=== PATIENT | female | born 1970 | race American Indian/Alaskan Native ===

== ENCOUNTER 2016-07-20 10:02 | Outpatient (CLI) | payer MEDICAID ==
--- NOTE | 2016-07-20 11:36 | Mammography Report ---
LEFT DIGITAL DIAGNOSTIC MAMMOGRAM and LEFT BREAST ULTRASOUND: 07/20/16 10:02:00 CLINICAL: Recalled for asymmetry. COMPARISON:06/22/16 screening FINDINGS: Lateralmedial and spot compression MLO and CC views were performed. Irregular circumscribed oval asymmetry persist with spot compression on the CC view. It appears to partially efface with spot compression on MLO view. Additional circumscribed nodules in the left breast are stable. Ultrasound of the inner left breast was performed and demonstrated a solid hypoechoic mass at 11 o'clock 13 cm from the nipple. It measures 8 x 5 x 9 mm and correlates with the mammographic density. IMPRESSION: A 9 mm suspicious mass 11 o'clock 13 cm from the nipple. BI-RADS CATEGORY: 4--Suspicious RECOMMENDATION: Ultrasound guided needle core biopsy of the left breast. I discussed the findings and the recommendation for needle core biopsy of the left breast with the patient at the time of the examination. ACR BI-RADS MAMMOGRAPHIC CODES: 0 = Needs additional imaging evaluation; 1 = Negative; 2 = Benign; 3 = Probably benign; 4 = Suspicious; 5 = Malignant; 6 = Known biopsy-proven malignancy COMMENT: 1. Dense breast tissue, i.e., adenosis, fibrocystic changes, etc., may obscure an underlying neoplasm. 2. Approximately 10% of cancers are not detected with mammography. 3. A negative mammography report should not delay biopsy if a clinically suspicious mass is present. COMMENT: Patient follow-up letters are generated via our [employer] application.
[2016-07-21] MEDS ORDERED: NACL ONE (13:55)
== END 2016-07-20 10:03 | disposition home or self-care (01) ==
LOC: MAMMO 10:02
PROVIDERS: ATTEND Advanced Practice Midwife
DX: N63 Unspecified lump in breast (principal)
CPT/HCPCS: 76642; G0206

== ENCOUNTER 2016-08-10 09:03 | Outpatient (CLI) | payer MEDICAID ==
--- NOTE | 2016-08-10 11:13 | Mammography Report ---
LEFT DIGITAL DIAGNOSTIC MAMMOGRAM: 08/10/16 09:03:00 CLINICAL: For clip placement immediately status post ultrasound biopsy. COMPARISON:07/20/16 FINDINGS: A biopsy clip is now identified in the upper inner quadrant and the previously described mass is no longer identified. IMPRESSION: Concordant clip placement status post ultrasound biopsy. BI-RADS CATEGORY: 4--Suspicious Pathology pending.
--- NOTE | 2016-08-10 11:34 | Ultrasound Report ---
VACUUM ASSISTED ULTRASOUND GUIDED NEEDLE CORE BIOPSY WITH CLIP PLACEMENT LEFT BREAST: 08/10/16 09:03:00 CLINICAL: A 9 mm suspicious mass at 11 o'clock. COMPARISON :07/20/16 FINDINGS: The procedure was explained to the patient and informed consent was obtained. Ultrasound demonstrated the previously described 9 mm mass at 11 o'clock. The skin was prepped with Betadine and anesthetized with 1% lidocaine. Vacuum-assisted needle core biopsy was performed through a small dermatotomy using ultrasound guidance, 2% lidocaine with epinephrine for deep anesthesia and a 13-gauge Elite biopsy probe. Imaging demonstrated satisfactory sampling. Multiple cores were obtained and placed in formalin. An 11-gauge Mammostar barbell shape clip was then placed within the lesion. Hemostasis was achieved with mild pressure and a sterile dressing was applied. The patient tolerated the procedure well and there were no apparent complications. A two view mammogram demonstrated concordant clip placement and no residual mammographic mass. The patient left the department in good condition with instructions for wound care and follow up. IMPRESSION: Uncomplicated vacuum-assisted ultrasound core biopsy and clip placement left breast.
== END 2016-08-10 09:04 | disposition home or self-care (01) ==
LOC: SPVWC 09:03
PROVIDERS: ATTEND Advanced Practice Midwife
DX: N63 Unspecified lump in breast (principal)
CPT/HCPCS: 19083; 88305; A4648; G0206; 88361; 88368

== ENCOUNTER 2016-08-26 15:30 | Outpatient (CLI) | payer MEDICAID ==
--- NOTE | 2016-08-27 09:25 | Magnetic Resonance Report ---
BILATERAL BREAST MRI WITHOUT AND WITH CONTRAST: 08/26/16 14:00:00 CLINICAL: Newly diagnosed left breast cancer. Status post also guided vacuum assisted needle core breast biopsy on 08/10/16. COMPARISON:06/22/16 screening mammogram, 07/20/16 left mammogram and left breast ultrasound and images at left ultrasound breast biopsy 08/10/16 with pathologic diagnosis of invasive ductal carcinoma, ER positive, OR positive, and HER-2 negative. TECHNIQUE: Axial 1.0-mm T1 without, axial high resolution 2.0-mm T2 and axial 1.0-mm dynamic Vibrant high-resolution postcontrast T1 saturation sequences on a 1.5 Deandra magnet. The examination was performed with an 8 channel dedicated Sentinelle breast coil. Post processing with CAD and subtraction was performed on an [employer] workstation. 30.0 cc of Multihance was injected without incident in a right antecubital vein 22-gauge INT for the contrast portion of the exam. Consent was obtained prior to the administration of the contrast. FINDINGS: Right: Minimal background parenchymal enhancement. No suspicious mass or suspicious enhancement. A 1.9 cm nonenhancing smooth oval mass at 6 o'clock in the center of the breast corresponds to a heavily calcified fibroadenoma that is more lateral on the recent screening mammogram. A 1.7 cm smooth oval mass with a benign enhancement pattern at 12 o'clock correlates with a benign mammographic mass. No suspicious right axillary or right internal mammary lymph nodes. Left: Mild background parenchymal enhancement. The known cancer is irregular enhancing mass in the upper inner quadrant 12 cm from the nipple measuring 10.0 x 5.0 x 5.0 mm. A hydro-kiya clip is located 1 cm lateral to the mass. The mass demonstrates heterogeneous enhancement with mixed kinetics, 66% type I persistent, 33% type II plateau and 1% type III washout waveforms. Segmental non-Mass enhancement in the area of the mass is most likely benign enhancement related to the recent biopsy and it measures 7.5 x 4.5 x 5.3 cm. Three nonenhancing masses of the left breast correlate with benign fibroadenomas on the mammogram. The largest is periareolar and measures 2.6 cm. No other mass or suspicious enhancement of the left breast. One suspicious level I left axillary lymph node measures 2.3 cm with 7 mm focal cortical thickening. A second left axillary lymph node measures 1.4 cm and has benign morphology with no cortical thickening. IMPRESSION: Known 1 cm left breast cancer and no additional suspicious lesion of either breast. Multiple bilateral benign fibroadenomas which have been mammographically stable over time. One suspicious left axillary lymph node. RIGHT BI-RADS 2 -- Benign LEFT BI-RADS 6 -- Known Cancer
== END 2016-08-26 15:31 | disposition home or self-care (01) ==
LOC: SPVIMAG 15:30
PROVIDERS: ATTEND Surgery
DX: C50.212 Malignant neoplasm of upper-inner quadrant of left female breast (principal)
CPT/HCPCS: 0159T; A9577; C8908; 77059

== ENCOUNTER 2016-09-14 10:15 | Outpatient (CLI) | payer MEDICAID ==
--- NOTE | 2016-09-15 08:02 | Vascular Lab Report ---
LOWER EXTREMITY VENOUS DUPLEX: REASON FOR EXAM: History of hypercoagulable state with breast cancer. COMMENTS ON THE RIGHT: All veins visualized are freely compressible without evidence of internal echogenicity. Flow is spontaneous and phasic throughout. COMMENTS ON THE LEFT: All veins visualized are freely compressible without evidence of internal echogenicity. Flow is spontaneous and phasic throughout. IMPRESSION: No evidence of acute or chronic deep venous thrombosis in either lower extremity.
== END 2016-09-14 10:16 | disposition home or self-care (01) ==
LOC: VAS 10:15
PROVIDERS: ATTEND Surgery
DX: C50.912 Malignant neoplasm of unspecified site of left female breast (principal); I82.403 Acute embolism and thrombosis of unspecified deep veins of lower extremity, bilateral
CPT/HCPCS: 93970

== ENCOUNTER 2016-09-16 08:15 | Day surgery (SDC) | payer MEDICAID ==
[2016-09-14 12:46] LABS: Basophils % (Auto) 0.5 % (0.0-1.8); Eosinophils % (Auto) 1.9 % (0.0-4.3); Hematocrit 38.4 % (30.3-42.9); Hemoglobin 12.3 gm/dl (10.1-14.3); Mean Corpuscular HGB Conc 32 % (30-34); Mean Corpuscular Hemoglobin 27 pg (28-32); Mean Corpuscular Volume 85 fl (79-97); Platelet Count 272 K/mm3 (140-440); Red Blood Count 4.54 M/mm3 (3.65-5.03); Red Cell Distribution Width 16.7 % (13.2-15.2); White Blood Count 7.5 K/mm3 (4.5-11.0)
[2016-09-14 13:01] LABS: BUN/Creatinine Ratio 21.66; Blood Urea Nitrogen 13 mg/dL (7-17); Calcium 9.1 mg/dL (8.4-10.2); Carbon Dioxide 29 mmol/L (22-30); Glucose 112 mg/dL (65-100)
[2016-09-14 13:02] LABS: Anion Gap 14 mmol/L; Chloride 100.1 mmol/L (98-107); Potassium 3.5 mmol/L (3.6-5.0); Sodium 140 mmol/L (137-145)
--- NOTE | 2016-09-14 13:02 | Anesthesia Consultation ---
Anesthesia Consult and Med Hx Date of service: 09/14/16 - Airway Anesthetic Teeth Evaluation: Good (MISSING BOTTOM LEFT, CROWN CAME OFF) ROM Head & Neck: Adequate Mental/Hyoid Distance: Adequate Mallampati Class: Class II Intubation Access Assessment: Probably Good - Pulmonary Exam CTA: Yes - Cardiac Exam Cardiac Exam: RRR - Pre-Operative Health Status ASA Pre-Surgery Classification: ASA3 Proposed Anesthetic Plan: General Nerve Block: PECS - Pulmonary Hx Smoking: No Hx Sleep Apnea: No - Cardiovascular System Hx Hypertension: Yes (FOR 5 YRS, DR. NADEEM ROMO - PCP) Hx Heart Murmur: Yes - Central Nervous System Hx Seizures: No CVA: No Hx Psychiatric Problems: No - Endocrine Hx Renal Disease: No Hx Non-Insulin Dependent Diabetes: Yes Hx Thyroid Disease: No Hx Hypothyroidism: No - Hematic Hx Anemia: Yes (IN 2015 BEFORE ANAMARIA) - Other Systems Hx Cancer: Yes (LEFT BREAST, DX: 07/2016) Hx Obesity: Yes (MORBID, BMI 52) - Additional Comments Anesthesia Medical History Comments: PONV
[~2016-09-16 08:15] MED LIST: NACL 0.9% 1000 ML 1,000 ML IV SCH; NEURONTIN PO NR; PEPCID PO NR; SUBLIMAZE IV NR; TRANSDERM-SCOP TD NR; VANCOMYCIN/NS 1 GM/250 ML 1 GM/250 ML BAG IV NR; VERSED IV NR
[2016-09-16] MEDS ORDERED: XYLOCAINE 1% 20 mL ONE (09:42)
--- NOTE | 2016-09-16 10:59 | Procedure Note ---
Date of procedure: 09/16/16 Pre-op diagnosis: lt breast lesion Post-op diagnosis: same Procedure: needle loc Findings: n/a Anesthesia: local Surgeon: NICK SOLANO Estimated blood loss: none Pathology: none Condition: stable (surgery)
[2016-09-16] MEDS ORDERED: SUBLIMAZE ONE (11:33)
[2016-09-16] MEDS ORDERED: DIPRIVAN 10 MG/ML IV ONE ×2 (11:33→12:58)
[2016-09-16] MEDS ORDERED: MARCAINE-EPI 0.5%-1:200,000 INFILTRATI ONE (11:45)
[2016-09-16] MEDS ORDERED: NEO SYNEPHRINE/NS Syringe(OR USE) IV ONE (12:43)
[2016-09-16] MEDS ORDERED: ZOFRAN ONE (13:41)
--- NOTE | 2016-09-16 13:43 | Mammography Report ---
Left breast localization: Mammographic grid technique is utilized. A superior approach was chosen for a marker placed in the central superior breast. The skin was cleansed and 1% lidocaine used for local anesthesia. A 7.5 cm Mraquez needle was successfully placed adjacent to the marker. A wire was then introduced followed by removal of the needle and reconfirmation of its position with mammography. There are no patient complications encountered.
[2016-09-16] MEDS ORDERED: WATER FOR IRRIG STERILE IR ONE (13:56)
[2016-09-16] MEDS ORDERED: NACL 0.9% IR ONE (13:56)
--- NOTE | 2016-09-16 15:34 | Mammography Report ---
Operative specimen mammogram: A single tissue specimen is submitted it includes the localizing wire and the targeted marker.
--- NOTE | 2016-09-16 15:56 | Short Stay Summary ---
Short Stay Documentation Date of service: 09/16/16 - History H&P: obtained from office - Allergies and Medications Current Medications: Allergies Penicillins Adverse Reaction (Unverified 07/20/16 10:03) UPSET STOMACH Home Medications Medication Instructions Recorded Confirmed Last Taken Type HYDROcodone/APAP 5-325 [[place] 1 each PO Q4H PRN #30 tablet 05/29/15 09/10/16 Rx 5-325 mg TAB] Acetaminophen/Codeine [Tylenol #3] 1 tab PO Q8H PRN 09/10/16 09/10/16 09/15/16 History Amoxicillin [Trimox CAP] 500 mg PO Q8H 09/10/16 09/10/16 09/15/16 History Ibuprofen [Motrin] 800 mg PO Q6HR PRN 09/10/16 09/10/16 09/15/16 History Losartan/Hydrochlorothiazide 1 each PO QDAY 09/10/16 09/16/16 09/16/16 03:45 History [Losartan-Hctz 100-25 mg Tab] metFORMIN [Glucophage] 500 mg PO BID 09/10/16 09/10/16 09/15/16 History HYDROcodone/APAP 5-325 [[place] 1 each PO Q6HR PRN #30 tablet 09/16/16 Unknown Rx 5/325] Active Medications Celecoxib (Celebrex) 200 mg PO PREOP NR Stop: 09/16/16 23:59 Last Admin: 09/16/16 09:08 Dose: 200 mg Famotidine (Pepcid) 20 mg PO PREOP NR Stop: 09/16/16 23:59 Last Admin: 09/16/16 09:07 Dose: 20 mg Fentanyl (Sublimaze) 100 mcg IV ONCE NR Stop: 09/16/16 16:00 Last Admin: 09/16/16 12:29 Dose: 50 mcg Gabapentin (Neurontin) 600 mg PO PREOP NR Stop: 09/16/16 23:59 Last Admin: 09/16/16 09:07 Dose: 600 mg Sodium Chloride (Nacl 0.9% 1000 Ml) 1,000 mls @ 75 mls/hr IV DIRECT BARRETT Last Admin: 09/16/16 11:29 Dose: 75 mls/hr Vancomycin HCl (Vancomycin/Ns 1 Gm/250 Ml) 1 gm in 250 mls @ 167.007 mls/hr IV PREOP NR PRN Reason: Protocol Stop: 09/16/16 23:59 Last Admin: 09/16/16 12:25 Dose: 167.007 mls/hr Midazolam HCl (Versed) 2 mg IV PREOP NR Stop: 09/16/16 23:59 Last Admin: 09/16/16 12:29 Dose: 2 mg Scopolamine (Transderm-Scop) 1 each TD PREOP NR Stop: 09/19/16 05:59 Last Admin: 09/16/16 09:08 Dose: 1 each - Brief post op/procedure progress note Date of procedure: 09/16/16 Pre-op diagnosis: Left breast cancer of the upper inner quadrant Post-op diagnosis: same Procedure: Left needle localization partial mastectomy and SLNB Anesthesia: GETA Findings: Wire and clip present within radiograph specimen; 2 SLNs Surgeon: LITZY ABEBE Estimated blood loss: minimal Pathology: list (left partial mastectomy, 2 SLNs) Specimen disposition: to lab Condition: stable - Disposition Condition at discharge: Good Disposition: DISCHARGED TO HOME OR SELFCARE Short Stay Discharge Plan Activity: other (no heavy lifting) Diet: regular Wound: other (keep incision clean and dry and may shower in 24 hours; no baths, pools or lakes; do not rub or scrub incision) Follow up with: NADEEM ROMO MD [Primary Care Provider] - 7 Days LITZY ABEBE MD [Staff Physician] - 7 Days Prescriptions: HYDROcodone/APAP 5-325 [[place] 5/325] 1 each PO Q6HR PRN #30 tablet PRN Reason: Pain
--- NOTE | 2016-09-16 16:05 | Operative Report ---
Operative Report Operative Report: Date of surgery: 09/16/2016 Operative diagnosis: Left breast cancer of the upper inner quadrant Postoperative diagnosis: Same Procedure: Left needle localization partial mastectomy and sentinel lymph node biopsy Surgeon: Ml Julian M.D. Anesthesia: Gen. Findings: Wire and clip present within radiograph specimen, 2 sentinel lymph nodes identified Complications: None Drains: None Disposition: PACU in good condition Indications for operative procedure: This is a 46-year-old premenopausal -[place] lady recently diagnosed with stage I left breast cancer of the upper inner quadrant. Recommendations were to proceed with a needle localization partial mastectomy and sentinel lymph node biopsy. Patient wished to proceed with the above procedure. Procedure in detail: The patient had a left breast wire needle localization performed by radiology. Anesthesia placed a left pectoral muscle block. She then was taken to the operating room and was laid supine. Gen. anesthesia was administered. The left breast and axilla were prepped and draped in the normal sterile operative fashion. The nipple was injected with radioisotope. Gamma probe was inserted into the axilla to ensure take-up. Timeout was performed. A skin incision was then made in the left axilla with a 15 blade knife with dissection taken down to the subcutaneous tissues. The axillary fascia was opened with the aid of Bovie cautery. 2 sentinel lymph nodes were identified that were appropriately dissected free. All remaining counts were less than 10 % of the highest count. Hemostasis was noted. Axillary cavity was irrigated. Axillary fascia was approximated and closed with a interrupted 3-0 Vicryl and skin closed with running 4-0 Monocryl and skin affix. Attention was then taken towards the left partial mastectomy. The wire was identified. The known cancer was at the 11 o'clock position 14 cm from the nipple. A skin incision was made with 15 blade knife with dissection taken down to the subcutaneous tissues. First began with removal of the wire from the skin and then followed by raising the superior flap followed by raising of the lateral, inferior and medial flap. Specimen was appropriately removed posteriorly from the pectoralus muscle with the aid of Bovie cautery. Upon further inspection there were some concerns of tissue remaining from the cephalad and caudal flaps with additional tissue removed and sent as additional revised margins. Hemostasis was obtained with the Bovie cautery. Radiograph specimen with clip and wire present. The subcutaneous tissues were then approximated and closed with interrupted 3-0 Vicryl and the skin closed with a running 4-0 Monocryl and skin affix. The patient tolerated surgery very well and she was awakened from anesthesia without darrin complications and transferred to PACU in good condition.
--- NOTE | 2016-09-16 16:09 | Post Anesthesia Evaluation ---
- Post Anesthesia Evaluation Patient Participated: Yes Airway Patent: Yes Stable Respiratory Function: Yes Nausea/Vomiting: No Temp > 96.8F: Yes Pain Manageable: Yes Adequeate Hydration: Yes Anesthesia Complications: No
[2016-09-16] MEDS ORDERED: DILAUDID ONE (16:40)
[2016-09-16] MEDS ORDERED: DILAUDID IV PRN (16:45)
[2016-09-16 19:32] VITALS: BP 100/60
== END 2016-09-16 18:40 | disposition home or self-care (01) ==
LOC: OR 08:15
PROVIDERS: ATTEND Surgery
DX: C50.212 Malignant neoplasm of upper-inner quadrant of left female breast (principal); I10 Essential (primary) hypertension; D64.9 Anemia, unspecified; E11.9 Type 2 diabetes mellitus without complications; E66.01 Morbid (severe) obesity due to excess calories; Z68.43 Body mass index [BMI] 50.0-59.9, adult; Z98.890 Other specified postprocedural states; Z80.3 Family history of malignant neoplasm of breast
CPT/HCPCS: 19281; 19301; 36415; 38525; 64450; 76098; 78800; 80048; 82962; 85025; 88307; 88333; A9541; J1170; J2250; J2370; J2405; J2704; J3010; J3370; J7030; 88342

== ENCOUNTER 2017-01-14 14:51 | Outpatient (CLI) | payer MEDICAID | END 2017-01-14 14:52 | disposition home or self-care (01) | LOC: LABHHL 14:51 | PROVIDERS: ATTEND Surgery | DX: T88.8XXA Other specified complications of surgical and medical care, not elsewhere classified, initial encounter (principal); I10 Essential (primary) hypertension; D64.9 Anemia, unspecified | CPT/HCPCS: 87075; 87116 ==

== ENCOUNTER 2017-06-30 18:03 | Emergency (ER) | payer MEDICAID, OTHER ==
[2017-06-30 19:12] VITALS: BP 125/84
[2017-06-30 19:47] LABS: Basophils # (Auto) 0.1 K/mm3 (0.0-0.1); Basophils % (Auto) 1.1 % (0.0-1.8); Eosinophils # (Auto) 0.2 K/mm3 (0.0-0.4); Eosinophils % (Auto) 2.5 % (0.0-4.3); Hematocrit 36.5 % (30.3-42.9); Hemoglobin 12.2 gm/dl (10.1-14.3); Lymphocytes # (Auto) 1.2 K/mm3 (1.2-5.4); Lymphocytes % (Auto) 16.9 % (13.4-35.0); Mean Corpuscular HGB Conc 34 % (30-34); Mean Corpuscular Hemoglobin 28 pg (28-32); Mean Corpuscular Volume 84 fl (79-97); Monocytes # (Auto) 0.5 K/mm3 (0.0-0.8); Monocytes % (Auto) 7.3 % (0.0-7.3); Platelet Count 266 K/mm3 (140-440); Red Blood Count 4.36 M/mm3 (3.65-5.03)
[2017-06-30 19:57] LABS: INR 1.91 (0.87-1.13)
[2017-06-30 20:02] LABS: BUN/Creatinine Ratio 28; Blood Urea Nitrogen 11 mg/dL (7-17); Calcium 9.4 mg/dL (8.4-10.2); Hemolysis Index 15
--- NOTE | 2017-06-30 20:32 | XRay Report ---
FINAL REPORT PROCEDURE: AP and lateral chest x-ray TECHNIQUE: AP and lateral chest radiographs were obtained. CPT 79926 HISTORY: sob COMPARISON: No prior studies are available for comparison. FINDINGS: Heart: Normal. Mediastinum/Vessels: Normal. Lungs/Pleural space: Lungs are mildly hypoventilated. A small amount of strandy densities visualized in the left lower lobe suggesting a small amount of atelectasis. A subsegmental infiltrate needs clinical exclusion. Lungs otherwise are clear. No effusions are identified.. Bony thorax: No acute osseous abnormality. Other: IMPRESSION: Small amount of patchy density left lower lobe suggesting subsegmental atelectasis versus subsegmental infiltrate. Clinical correlation is necessary. Lungs are hypoventilated. No other abnormalities are identified..
[2017-07-01] MEDS ORDERED: SUBLIMAZE ONE (06:00)
== END 2017-07-01 04:51 | disposition left against medical advice (07) ==
LOC: ED 18:03
DX: M54.2 Cervicalgia (principal); Z53.21 Procedure and treatment not carried out due to patient leaving prior to being seen by health care provider
CPT/HCPCS: 36415; 71020; 80048; 85025; 85610; J3010

== ENCOUNTER 2018-08-02 06:34 | Day surgery (SDC) | payer MEDICAID, OTHER ==
[2018-08-02] MEDS ORDERED: NEURONTIN ONE (06:52)
[2018-08-02 07:20] LABS: Hematocrit 37.4 % (30.3-42.9); Hemoglobin 12.3 gm/dl (10.1-14.3)
[2018-08-02] MEDS ORDERED: LACTATED RINGERS 1,000 ML ONE (07:26)
[2018-08-02] MEDS ORDERED: DILAUDID IV PRN (07:39)
[2018-08-02] MEDS ORDERED: ZOFRAN IV PRN (07:39)
[2018-08-02] MEDS ORDERED: MARCAINE 0.5% INFILTRATI ONE (07:41)
--- NOTE | 2018-08-02 07:41 | Anesthesia Day of Surgery ---
Anesthesia Day of Surgery - Day of Surgery Patient Examined: Yes Patient H&P Reviewed: Yes Patient is NPO: Yes Beta Blockers: No Cardiac Clearance: No Pulmonary Clearance: No Darrin's Test: N/A
--- NOTE | 2018-08-02 07:41 | Anesthesia Consultation ---
Anesthesia Consult and Med Hx Date of service: 08/02/18 - Airway Anesthetic Teeth Evaluation: Good ROM Head & Neck: Adequate Mental/Hyoid Distance: Adequate Mallampati Class: Class II Intubation Access Assessment: Probably Good - Pulmonary Exam CTA: Yes - Cardiac Exam Cardiac Exam: No Murmur - Pre-Operative Health Status ASA Pre-Surgery Classification: ASA3 Proposed Anesthetic Plan: General - Pulmonary Hx Smoking: No Hx Sleep Apnea: No - Cardiovascular System Hx Hypertension: Yes (x 6yrs) Hx Heart Murmur: Yes - Central Nervous System Hx Psychiatric Problems: No - Hematic Hx Anemia: Yes (Past hx) - Other Systems Hx Cancer: Yes
--- NOTE | 2018-08-02 07:42 | Short Stay Summary ---
Short Stay Documentation Date of service: 08/02/18 Narrative H&P: Pt is a 48yo BF s/p [facility] 05/28/15 presents for Bilateral Oophorectomy recommended by her Oncologist due to Breast cancer. Pt has no complaints. - History Principal diagnosis: Bilateral Oophorectomy H&P: obtained from office Past Medical History: hypertension, pulmonary embolism, other (Breast CA) Past Surgical History: hysterectomy, Other (Cervical cerclage x 2; Right ovarian cystectomy) Social history: no significant social history, single - Allergies and Medications Current Medications: Allergies Penicillins Adverse Reaction (Unverified 07/27/18 09:47) UPSET STOMACH Home Medications Medication Instructions Recorded Confirmed Last Taken Type Losartan/Hydrochlorothiazide 1 each PO QDAY 09/10/16 07/27/18 09/16/16 03:45 History [Losartan-Hctz 100-25 mg Tab] metFORMIN [Glucophage] 500 mg PO BID 09/10/16 07/27/18 09/15/16 History Anastrozole [Arimidex] 1 mg PO DAILY 07/27/18 07/27/18 Unknown History Active Medications Celecoxib (Celebrex) 200 mg PO PREOP NR Gabapentin (Neurontin) 300 mg PO PREOP NR Hydromorphone HCl (Dilaudid) 0.5 mg IV Q10MIN PRN PRN Reason: Pain , Severe (7-10) Lactated Ringer's (Lactated Ringers) 1,000 mls @ 42 mls/hr IV DIRECT BARRETT Ondansetron HCl (Zofran) 4 mg IV ONCE PRN PRN Reason: Nausea And Vomiting - Physical exam General appearance: no acute distress Integumentary: no rash HEENT: Atraumatic Lungs: Clear to auscultation Breasts: deferred Heart: Regular rate Gastrointestinal: normal Female Genitourinary: deferred Rectal Exam: deferred Extremities: no ischemia, No edema Neurological: Normal gait, Normal speech - Brief post op/procedure progress note Date of procedure: 08/02/18 Pre-op diagnosis: Personal history of breast cancer Post-op diagnosis: same Procedure: Laparoscopic bilateral oophorectomy Anesthesia: GETA Findings: Absent uterus and cervix. Atrophic right and left ovaries. Surgeon: DAVID CALLAHAN Estimated blood loss: minimal Pathology: list (Right) Specimen disposition: to lab Condition: stable - Hospital course Hospital course: Unremarkable. - Disposition Condition at discharge: Good Disposition: DC-01 TO HOME OR SELFCARE - Discharge Diagnoses (1) Breast CA Status: Acute Qualifiers: Breast location: unspecified site of breast Estrogen receptor status: unspecified Patient sex: female Laterality: left Qualified Code(s): C50.912 - Malignant neoplasm of unspecified site of left female breast Short Stay Discharge Plan Activity: no restrictions Diet: regular Wound: open to air, keep clean and dry Follow up with: DAVID CALLAHAN MD [Staff Physician] - 14 Days ANASTASIA HENNESSY MD [Primary Care Provider] - 14 Days Prescriptions: Heparin Sodium,Porcine/Pf [Heparin 20 Units/2 ml (10/ml)] 5,000 unit SUB-Q ONCE #1 ml HYDROcodone/APAP 5-325 [[place] 5/325] 1 each PO Q6HR PRN #20 tablet PRN Reason: Pain Ibuprofen [Motrin] 800 mg PO Q8HR PRN #30 tablet PRN Reason: Pain, Moderate (4-6)
[2018-08-02] MEDS ORDERED: GENTAMICIN IV SCH (07:45)
[2018-08-02] MEDS ORDERED: SUBLIMAZE ONE (07:58)
[2018-08-02] MEDS ORDERED: DIPRIVAN 10 MG/ML IV ONE ×2 (07:58→09:51)
[2018-08-02] MEDS ORDERED: XYLOCAINE MPF 2% ONE (07:59)
[2018-08-02] MEDS ORDERED: GENTAMICIN 200 MG in NACL 0.9% 100 ML IV SCH (08:00)
[2018-08-02] MEDS ORDERED: LACTATED RINGERS 1,000 ML IV SCH (08:00)
[2018-08-02] MEDS ORDERED: CLEOCIN 600 MG/50 mL 600 MG/50 ML BAG IV NR (08:00)
[2018-08-02] MEDS ORDERED: NEURONTIN PO NR (08:00)
[2018-08-02] MEDS ORDERED: ZEMURON IV ONE (08:01)
[2018-08-02] MEDS ORDERED: DECADRON ONE (08:01)
[2018-08-02] MEDS ORDERED: ZOFRAN ONE (08:01)
[2018-08-02] MEDS ORDERED: NACL 0.9% IR ONE ×2 (09:00)
[2018-08-02] MEDS ORDERED: BLOXIVERZ ONE (09:42)
[2018-08-02] MEDS ORDERED: HEPARIN SUB-Q SCH (10:30)
[2018-08-02] MEDS ORDERED: PERCOCET 5/325 PO PRN (10:32)
--- NOTE | 2018-08-02 11:30 | Operative Report ---
Operative Report Operative Report: Date of procedure: 08/02/2018 Pre-operative diagnosis: Personal history of breast cancer Post-operative diagnosis: Same Procedure name(s): Laparoscopic bilateral oophorectomy Surgeon: David Farrar MD Cathodic Protection Technician: None Anesthesia: Gen. endotracheal intubation by Dr. Hernandez EBL: Less than 10 mls Findings: Absent uterus and cervix. Atrophic right and left ovaries. Procedure: After the patient was correctly identified, she was prepped and draped in the usual sterile fashion and placed in the dorsolithotomy position. First the bladder was catheterized using Haines catheter, and the speculum was placed in the vaginal vault. The cervix was absent, so a sponge stick was placed in the vaginal vault. Attention was then turned to the abdomen where first a periumbilical incision was made using the skin knife, an Optiview trocar was inserted under direct visualization. After adequate amount of abdominal insufflation, visualization of the pelvic organs found the uterus to be absent, and the right and left ovaries were atrophic and adherent to the pelvic sidewall. Next a suprapubic incision and a right lateral incision was made through which 5 mm trochars were placed in order to aid in the patient's pelvic organs. The right ovary was grasped, and the bipolar cautery was used to clamp, cauterize and cut the right infundibulopelvic ligament, thus excising the right ovary from the pelvic sidewall. The same procedure was performed on the left. The left ovary was grasped, and the bipolar cautery was used to clamp, cauterize and cut the left infundibulopelvic ligament, thus excising the left ovary from the pelvic sidewall. Both ovaries are removed using an Endopouch and sent to pathology. The Tisseel sealant was used to spray across the oophorectomy sites, and excellent hemostasis was assured. At this point the procedure was considered complete. All instruments removed from the abdomen, and the abdomen was deflated. The periumbilical fascia incision was closed using the Wilfredo- Daphnie device. The skin was re-approximated using 4 Vicryl suture in sub- cuticular fashion. The suprapubic and right lateral incisions were closed in similar fashion. Each incision was infiltrated using 0.5% Marcaine solution. The Haines catheter was removed, the vaginal sponge stick also removed, the patient tolerated the procedure well and was transferred to recovery in stable condition.
[2018-08-02 11:55] VITALS: BP 126/73
== END 2018-08-02 06:35 | disposition home or self-care (01) ==
LOC: OR 06:34
PROVIDERS: ATTEND Obstetrics & Gynecology
DX: N83.312 Acquired atrophy of left ovary (principal); N83.311 Acquired atrophy of right ovary; C50.919 Malignant neoplasm of unspecified site of unspecified female breast; G43.909 Migraine, unspecified, not intractable, without status migrainosus; M19.90 Unspecified osteoarthritis, unspecified site; I10 Essential (primary) hypertension; E11.9 Type 2 diabetes mellitus without complications; Z88.0 Allergy status to penicillin; Z79.899 Other long term (current) drug therapy; Z79.84 Long term (current) use of oral hypoglycemic drugs; Z98.890 Other specified postprocedural states; Z90.710 Acquired absence of both cervix and uterus; Z86.2 Personal history of diseases of the blood and blood-forming organs and certain disorders involving the immune mechanism
CPT/HCPCS: 36415; 58661; 82962; 84132; 85014; 85018; 88305; 88307; 88313; A4217; J1100; J1170; J1580; J1644; J2405; J2704; J2710; J3010; J7120

== ENCOUNTER 2020-06-20 09:45 | Outpatient (CLI) | payer MEDICAID ==
--- NOTE | 2020-06-21 08:38 | Mammography Report ---
DIGITAL SCREENING MAMMOGRAM WITH CAD, 06/20/2020 INDICATION: Routine screening mammography. TECHNIQUE: Digital bilateral 2D mammography was obtained in the craniocaudal and mediolateral obliq ue projections. This examination was interpreted with the benefit of Computer-Aided Detection analysi s. COMPARISON: 06/20/2018 06/25/2017. FINDINGS: Breast Density: There are scattered areas of fibroglandular density. There is no evidence of dominant mass, suspicious calcifications or architectural distortion in eithe r breast. Stable bilateral nodularity. Postbiopsy change left breast is unchanged. IMPRESSION: Follow up recommendation: Routine yearly BI-RADS Category 1: Negative. A "normal" or negative report should not discourage follow up or biopsy of a clinically significant f inding. A written summary of these findings will be mailed to the patient. The patient will be entered into a mammography reporting system which will generate a reminder letter for the patient's next appointmen t at the appropriate interval. The [employer] recommends yearly mammograms starting at age 40 and continuing as l diane as a woman is in good health. Breast MRI is recommended for women with an approximate 20-25% or greater lifetime risk of breast cancer, including women with a strong family history of breast or ova ibis cancer or who have been treated for Hodgkin's disease. Signer Name: Ady Sr MD Signed: 06/21/2020 8:33 AM Workstation Name: [email or web address]
== END 2020-06-20 09:46 | disposition home or self-care (01) ==
LOC: SPVWC 09:45
PROVIDERS: ATTEND Surgery
DX: Z12.31 Encounter for screening mammogram for malignant neoplasm of breast (principal)
CPT/HCPCS: 77063; 77067